=== PATIENT | female | born 1950 | race African-American/Black ===

== ENCOUNTER 2022-08-12 15:54 | Inpatient (IN) ==
[2022-08-12] MEDS ORDERED: ALBUTEROL/IPRATROPIUM 3 ML NEB RESP TX STA (20:14)
[2022-08-12] MEDS ORDERED: SODIUM CHLORIDE 0.9% 1,000 ML IV STA (20:14)
[2022-08-12] MEDS ORDERED: hydrALAZINE 20 MG/1 ML VIAL IV STA (20:20)
[2022-08-12] MEDS ORDERED: hydrALAZINE 20 MG/1 ML VIAL ONE (20:21)
[2022-08-12 20:25] LABS: Basophils % 0.2 % (0.0-0.8); Eosinophils % 0.3 % (0.00-10.9); Hematocrit 33.6 VOL% (35.7-47.0); Hemoglobin 11.9 GM/DL (12.0-16.0); Immature Granulocytes % 0.3 %; Immature Granulocytes Absolute 0.04 #; Lymphocytes # 2.3 10*3/uL (1.4-4.0); Lymphocytes % 18.4 % (21.3-54.2); Mean Corpuscular HGB Conc 35.4 GM/DL (32-36); Mean Corpuscular Volume 78.1 FL (87-102); Mean Platelet Volume 9.8 FL (9.6-12.0); Monocytes # 1.2 10*3/uL (0.11-0.8); Neutrophils % 70.8 % (38.7-73.9); Platelet Count 247 T/CUMM (130-400); Red Cell Distribution Width 15.4 % (9.3-17.3); White Blood Count 12.3 T/CUMM (4-12)
[2022-08-12 20:35] LABS: INR 1.1; PT Patient Result 11.9 SECS (10.1-12.1); Partial Thromboplastin Time 36.2 SECS (23.7-32.9)
[2022-08-12 20:48] LABS: Albumin 3.2 G/DL (3.4-5.0); Bilirubin,Total 0.7 MG/DL (0.20-1.00); Calcium 9.2 MG/DL (8.5-10.1); Osmolality,Calculated 267.5 MOS/KG (273-304); Potassium 3.3 MMOL/L (3.5-5.1); Total Protein 8.8 G/DL (6.4-8.2)
[2022-08-12 20:52] LABS: Mucus,Urine Occasional /LPF (Occasional); RBC,Urine 1 /HPF (0-4); Squamous Epithelial Cell,Urine Occasional /HPF (0-10)
[2022-08-12 20:54] LABS: Bilirubin,Urine Negative (Negative); Blood, Urine Small mg/dL (Negative); Glucose,Urine (UA) 250 mg/dL (Negative); Ketones,Urine Negative (Negative); Nitrite,Urine Negative (Negative); Protein,Urine Negative (Negative); Urine Appearance Clear (Clear); Urine Color Yellow (Yellow); Urine Specific Gravity 1.015 (1.001-1.035); Urine Urobilinogen 0.2 eU/dL (<2.0)
[2022-08-12] MEDS ORDERED: cefTRIAXone 1,000 MG in SODIUM CHLORIDE 0.9% 100 ML IV STA (21:14)
[2022-08-12] MEDS ORDERED: ONDANSETRON 4 MG/2 ML VIAL IV PRN (21:34)
[2022-08-12] MEDS ORDERED: DEXTROSE 10% 250 ML BAG IV PRN (21:34)
[2022-08-12] MEDS ORDERED: GLUCAGON 1 MG VIAL IM PRN (21:34)
[2022-08-12] MEDS ORDERED: ACETAMINOPHEN 325 MG TABLET PO PRN (21:34)
[2022-08-12] MEDS: AZITHROMYCIN INJ 500 MG in SODIUM CHLORIDE 0.9% 250 ML IV SCH (23:47)
[2022-08-13 07:33] LABS: Basophils % 0.1 % (0.0-0.8); Hematocrit 29.5 VOL% (35.7-47.0); Hemoglobin 10.4 GM/DL (12.0-16.0); Immature Granulocytes % 0.5 %; Immature Granulocytes Absolute 0.07 #; Lymphocytes # 2.4 10*3/uL (1.4-4.0); Lymphocytes % 17.3 % (21.3-54.2); Mean Corpuscular HGB Conc 35.3 GM/DL (32-36); Mean Corpuscular Volume 77.6 FL (87-102); Mean Platelet Volume 9.9 FL (9.6-12.0); Monocytes # 1.5 10*3/uL (0.11-0.8); Monocytes % 10.7 % (1.7-12.7); Neutrophils % 71.4 % (38.7-73.9); Platelet Count 202 T/CUMM (130-400); White Blood Count 13.6 T/CUMM (4-12)
[2022-08-13] MEDS: INSULIN REGULAR 100 UNIT/ML SUBCUT SCH ×4 (07:51→21:03)
[2022-08-13 07:59] LABS: Albumin 2.8 G/DL (3.4-5.0); Bilirubin,Total 1.2 MG/DL (0.20-1.00); Calcium 8.3 MG/DL (8.5-10.1); Osmolality,Calculated 270.1 MOS/KG (273-304); Potassium 2.8 MMOL/L (3.5-5.1); Total Protein 7.8 G/DL (6.4-8.2)
[2022-08-13] MEDS ORDERED: PANTOPRAZOLE 40 MG TABLET PO SCH (09:00)
[2022-08-13] MEDS ORDERED: CYANOCOBALAMIN 2500 MCG PO SCH (09:00)
[2022-08-13] MEDS: carvediloL 12.5 MG TABLET PO SCH ×2 (09:07→17:14)
[2022-08-13] MEDS: lisinopriL 10 MG TABLET PO SCH (09:08)
[2022-08-13] MEDS: POTASSIUM CHLORIDE 20 MEQ TABLET PO SCH ×2 (09:08→11:25)
[2022-08-13] MEDS: PANTOPRAZOLE 40 MG VIAL IV SCH ×2 (09:26→21:01)
[2022-08-13 09:49] LABS: Hematocrit 30.3 VOL% (35.7-47.0); Hemoglobin 10.6 GM/DL (12.0-16.0)
[2022-08-13 10:31] LABS: % Iron Saturation 4.8 % (18-50); Ferritin 300.5 ng/mL (8-252)
[2022-08-13 11:14] LABS: Folate 14.72 NG/ML (5.38-24.0)
[2022-08-13] MEDS: BISACODYL 5 MG TABLET PO SCH ×2 (11:25→18:19)
[2022-08-13 16:33] LABS: Hematocrit 28.8 VOL% (35.7-47.0); Hemoglobin 10.2 GM/DL (12.0-16.0)
[2022-08-13] MEDS ORDERED: POLYETHYLENE GLYCOL POWDER 255 GM BOTTLE PO ONE (18:00)
[2022-08-13] MEDS ORDERED: cefTRIAXone 1,000 MG in SODIUM CHLORIDE 0.9% 100 ML IV SCH (21:00)
[2022-08-13] MEDS ORDERED: MAGNESIUM HYDROXIDE SUSP 30 ML UDCUP PO ONE (21:00)
[2022-08-13 22:20] LABS: Hemoglobin 10.7 GM/DL (12.0-16.0)
[2022-08-13] MEDS: AZITHROMYCIN INJ 500 MG in SODIUM CHLORIDE 0.9% 250 ML IV SCH (23:29)
[2022-08-14] MEDS: BISACODYL 5 MG TABLET PO SCH (02:58)
[2022-08-14 05:08] LABS: Basophils % 0.1 % (0.0-0.8); Eosinophils # 0.1 10*3/uL (0.0-0.87); Hematocrit 29.8 VOL% (35.7-47.0); Hemoglobin 10.4 GM/DL (12.0-16.0); Immature Granulocytes % 0.6 %; Immature Granulocytes Absolute 0.05 #; Lymphocytes # 2.4 10*3/uL (1.4-4.0); Lymphocytes % 29.7 % (21.3-54.2); Mean Corpuscular HGB Conc 34.9 GM/DL (32-36); Mean Corpuscular Volume 78.4 FL (87-102); Mean Platelet Volume 9.4 FL (9.6-12.0); Monocytes # 0.7 10*3/uL (0.11-0.8); Monocytes % 8.8 % (1.7-12.7); Neutrophils % 59.8 % (38.7-73.9); Platelet Count 203 T/CUMM (130-400); White Blood Count 8.2 T/CUMM (4-12)
[2022-08-14 05:30] LABS: Platelet Estimate Normal
[2022-08-14 05:48] LABS: Calcium 8.8 MG/DL (8.5-10.1); Osmolality,Calculated 275.7 MOS/KG (273-304)
[2022-08-14] MEDS ORDERED: LACTATED RINGERS 1,000 ML IV SCH (07:30)
[2022-08-14] MEDS: INSULIN REGULAR 100 UNIT/ML SUBCUT SCH ×2 (07:46→11:51)
[2022-08-14] MEDS ORDERED: SODIUM CHLOR 0.9% KCL 20 MEQ 20 MEQ/1,000 ML BAG IV SCH (09:00)
[2022-08-14] MEDS ORDERED: propofoL 200 MG/20 ML VIAL IV ONE (09:53)
[2022-08-14] MEDS ORDERED: LIDOCAINE 2% 5 ML VIAL ONE (09:53)
[2022-08-14] MEDS ORDERED: FERRIC GLUCONATE COMPLEX 125 MG in SODIUM CHLORIDE 0.9% 100 ML IV SCH (10:00)
[2022-08-14] MEDS ORDERED: POTASSIUM CHLORIDE 20 MEQ TABLET PO ONE (11:00)
[2022-08-14 11:49] VITALS: BP 116/72
[2022-08-14] MEDS: carvediloL 12.5 MG TABLET PO SCH (11:58)
[2022-08-14] MEDS: lisinopriL 10 MG TABLET PO SCH (11:58)
[2022-08-14] MEDS: PANTOPRAZOLE 40 MG VIAL IV SCH (12:18)
== END 2022-08-14 14:45 | disposition home or self-care (01) | DRG 377 ==
LOC: N.EDINP 15:54 → N.ED 15:54 → N.EDINP 22:44 → N.3E 22:50
PROVIDERS: ADMIT Internal Medicine; ATTEND Internal Medicine